=== PATIENT | female | born 1960 | race Caucasian/White ===

== ENCOUNTER → 2024-05-04 10:40 | Outpatient (REF) | payer BC, SELFPAY | LOC: WDC 10:40 | PROVIDERS: ATTENDING PHYSICIAN Hospitalist | DX: Z12.31 Encounter for screening mammogram for malignant neoplasm of breast (principal) | CPT/HCPCS: 77063; 77067 ==

== ENCOUNTER → 2024-10-12 10:23 | Outpatient (REF) | payer BC, SELFPAY | LOC: RAD 10:23 | PROVIDERS: ATTENDING PHYSICIAN Urology; FAMILY PHYSICIAN Hospitalist | DX: M62.89 Other specified disorders of muscle (principal); R39.89 Other symptoms and signs involving the genitourinary system; R35.0 Frequency of micturition | CPT/HCPCS: 76770; 76856 ==

== ENCOUNTER → 2024-11-09 08:43 | Outpatient (REF) | payer BC, SELFPAY | LOC: HWRAD 08:43 | PROVIDERS: ATTENDING PHYSICIAN Urology; FAMILY PHYSICIAN Hospitalist | DX: R93.89 Abnormal findings on diagnostic imaging of other specified body structures (principal); R39.9 Unspecified symptoms and signs involving the genitourinary system | CPT/HCPCS: 74176 ==

== ENCOUNTER → 2025-03-08 14:55 | Outpatient (REF) | payer BC, SELFPAY | LOC: RAD 14:55 | PROVIDERS: ATTENDING PHYSICIAN Hospitalist | DX: M79.672 Pain in left foot (principal) | CPT/HCPCS: 73630 ==

== ENCOUNTER → 2025-04-13 14:27 | Outpatient (REF) | payer BC, SELFPAY | LOC: HWRAD 14:27 | PROVIDERS: ATTENDING PHYSICIAN Otolaryngology; FAMILY PHYSICIAN Hospitalist | DX: J31.0 Chronic rhinitis (principal); R09.81 Nasal congestion | CPT/HCPCS: 70486 ==